=== PATIENT | male | born 1960 | race Caucasian/White ===

== ENCOUNTER 2019-04-20 14:50 | Inpatient (IN) ==
[2019-04-20] MEDS: Carbidopa/Levodopa 25/100 TABLET PO SCH ×3 (18:27→22:52)
[2019-04-20] MEDS: QUEtiapine Fumarate 25 MG TABLET PO SCH ×2 (22:41→22:52)
[2019-04-21] MEDS: Carbidopa/Levodopa 25/100 TABLET PO SCH ×6 (04:00→20:26)
[2019-04-21 05:48] LABS: Basophils % 0.6 %; Eosinophils # 0.1 K/mcL (0.0-0.6); Eosinophils % 1.2 %; Hematocrit 40.3 % (37.5-50.1); Hemoglobin 13.4 g/dL (12.9-16.9); Immature Granulocytes % 0.3 % (0-4); Lymphocytes # 0.8 K/mcL (0.6-4.6); Mean Corpuscular HGB Conc 33.3 g/dL (31.6-35.5); Mean Corpuscular Volume 87.2 fL (83.0-100.0); Mean Platelet Volume 10.1 fL (9.4-12.4); Monocytes # 0.4 K/mcL (0.0-1.3); Monocytes % 6.8 %; Neutrophils # 5.1 K/mcL (1.6-8.9); Platelet Count 200 K/mcL (140-400); Red Blood Count 4.62 M/mcL (4.19-5.50); Red Cell Distribution Width 13.2 % (11.5-14.5); Segmented Neutrophils % 79.1 %; White Blood Count 6.5 K/mcL (4.3-11.1)
[2019-04-21 05:54] LABS: INR 1.2; Prothrombin Time 13.3 Seconds (9.4-12.1)
[2019-04-21 05:56] LABS: Activated Partial Thrombo Time 30.1 Seconds (26.0-36.0)
[2019-04-21 06:05] LABS: BUN/Creatinine Ratio 28 (6-26); Blood Urea Nitrogen 27 mg/dL (8-23); Calcium 8.7 mg/dL (8.6-10.3); Carbon Dioxide 27 mEq/L (23-29); Chloride 109 mEq/L (98-107); Glucose 110 mg/dL (70-105); Osmolality,Calculated 302 (280-300); Sodium 143 mEq/L (136-145); eGFR For African Americans > 60 (> 60); eGFR For Non-African Americans > 60 (> 60)
[2019-04-21] MEDS: Cholecalciferol (D-3) 1,000 UNIT (25MCG) TABLET PO SCH (08:23)
[2019-04-21] MEDS: QUEtiapine Fumarate 25 MG TABLET PO SCH ×2 (08:23→20:26)
[2019-04-21] MEDS: NIFEdipine XL (24 HR) 30 MG TAB.ER.24 PO SCH (11:06)
[2019-04-22] MEDS: Carbidopa/Levodopa 25/100 TABLET PO SCH ×6 (00:43→20:14)
[2019-04-22] MEDS: Cholecalciferol (D-3) 1,000 UNIT (25MCG) TABLET PO SCH (08:13)
[2019-04-22] MEDS: QUEtiapine Fumarate 25 MG TABLET PO SCH ×2 (08:13→20:14)
[2019-04-22] MEDS: NIFEdipine XL (24 HR) 30 MG TAB.ER.24 PO SCH (11:39)
[2019-04-23] MEDS: Carbidopa/Levodopa 25/100 TABLET PO SCH ×7 (00:02→23:55)
[2019-04-23] MEDS: QUEtiapine Fumarate 25 MG TABLET PO SCH ×2 (08:27→19:49)
[2019-04-23] MEDS: Cholecalciferol (D-3) 1,000 UNIT (25MCG) TABLET PO SCH (08:28)
[2019-04-23] MEDS: NIFEdipine XL (24 HR) 30 MG TAB.ER.24 PO SCH (13:10)
[2019-04-23] MEDS ORDERED: Methyl Salicylate/Menthol 28 GM TUBE TP PRN (20:08)
[2019-04-24] MEDS: Trolamine Salicylate/Aloe Vera 85 APPL/85 GM TUBE TP PRN ×2 (01:52→19:56)
[2019-04-24] MEDS: Carbidopa/Levodopa 25/100 TABLET PO SCH ×5 (04:23→19:56)
[2019-04-24] MEDS: QUEtiapine Fumarate 25 MG TABLET PO SCH ×2 (09:27→19:56)
[2019-04-24] MEDS: Cholecalciferol (D-3) 1,000 UNIT (25MCG) TABLET PO SCH (09:27)
[2019-04-24] MEDS: NIFEdipine XL (24 HR) 30 MG TAB.ER.24 PO SCH (11:26)
[2019-04-25] MEDS: Carbidopa/Levodopa 25/100 TABLET PO SCH ×7 (00:26→23:22)
[2019-04-25] MEDS: Cholecalciferol (D-3) 1,000 UNIT (25MCG) TABLET PO SCH (07:48)
[2019-04-25] MEDS: QUEtiapine Fumarate 25 MG TABLET PO SCH ×2 (07:48→19:55)
[2019-04-25] MEDS: NIFEdipine XL (24 HR) 30 MG TAB.ER.24 PO SCH (11:25)
[2019-04-26] MEDS: Carbidopa/Levodopa 25/100 TABLET PO SCH ×5 (04:55→20:30)
[2019-04-26] MEDS: Cholecalciferol (D-3) 1,000 UNIT (25MCG) TABLET PO SCH (08:21)
[2019-04-26] MEDS: QUEtiapine Fumarate 25 MG TABLET PO SCH ×2 (08:21→20:30)
[2019-04-26] MEDS: NIFEdipine XL (24 HR) 30 MG TAB.ER.24 PO SCH (12:07)
[2019-04-27] MEDS: Carbidopa/Levodopa 25/100 TABLET PO SCH ×6 (01:04→20:18)
[2019-04-27] MEDS: QUEtiapine Fumarate 25 MG TABLET PO SCH ×2 (08:07→20:18)
[2019-04-27] MEDS: Cholecalciferol (D-3) 1,000 UNIT (25MCG) TABLET PO SCH (08:07)
[2019-04-27] MEDS: NIFEdipine XL (24 HR) 30 MG TAB.ER.24 PO SCH (11:42)
[2019-04-28] MEDS: Carbidopa/Levodopa 25/100 TABLET PO SCH ×7 (01:12→23:20)
[2019-04-28] MEDS: QUEtiapine Fumarate 25 MG TABLET PO SCH ×2 (08:33→19:48)
[2019-04-28] MEDS: Cholecalciferol (D-3) 1,000 UNIT (25MCG) TABLET PO SCH (08:33)
[2019-04-28] MEDS: NIFEdipine XL (24 HR) 30 MG TAB.ER.24 PO SCH (12:12)
[2019-04-29] MEDS: Carbidopa/Levodopa 25/100 TABLET PO SCH ×6 (04:07→23:31)
[2019-04-29] MEDS: QUEtiapine Fumarate 25 MG TABLET PO SCH ×2 (07:45→20:19)
[2019-04-29] MEDS: Cholecalciferol (D-3) 1,000 UNIT (25MCG) TABLET PO SCH (07:46)
[2019-04-29] MEDS: Aspirin Enteric Coated 81 MG Tablet PO SCH (07:46)
[2019-04-29 08:17] LABS: Hematocrit 40.9 % (37.5-50.1); Hemoglobin 13.9 g/dL (12.9-16.9); Mean Corpuscular Hemoglobin 29.6 pg (28.0-33.3); Mean Corpuscular Volume 87.2 fL (83.0-100.0); Platelet Count 253 K/mcL (140-400); Red Blood Count 4.69 M/mcL (4.19-5.50); Red Cell Distribution Width 12.8 % (11.5-14.5); White Blood Count 6.9 K/mcL (4.3-11.1)
[2019-04-29 08:37] LABS: BUN/Creatinine Ratio 18 (6-26); Blood Urea Nitrogen 16 mg/dL (8-23); Calcium 9.1 mg/dL (8.6-10.3); Carbon Dioxide 30 mEq/L (23-29); Chloride 104 mEq/L (98-107); Glucose 102 mg/dL (70-105); Osmolality,Calculated 293 (280-300); Potassium 3.7 mEq/L (3.5-5.1); Sodium 141 mEq/L (136-145); eGFR For African Americans > 60 (> 60); eGFR For Non-African Americans > 60 (> 60)
[2019-04-29] MEDS: NIFEdipine XL (24 HR) 30 MG TAB.ER.24 PO SCH (12:30)
[2019-04-30] MEDS: Carbidopa/Levodopa 25/100 TABLET PO SCH ×5 (03:49→20:28)
[2019-04-30] MEDS: Aspirin Enteric Coated 81 MG Tablet PO SCH (07:41)
[2019-04-30] MEDS: Cholecalciferol (D-3) 1,000 UNIT (25MCG) TABLET PO SCH (07:42)
[2019-04-30] MEDS: QUEtiapine Fumarate 25 MG TABLET PO SCH ×2 (07:42→20:27)
[2019-04-30] MEDS: NIFEdipine XL (24 HR) 30 MG TAB.ER.24 PO SCH (11:37)
[2019-05-01] MEDS: Carbidopa/Levodopa 25/100 TABLET PO SCH ×6 (00:30→20:03)
[2019-05-01] MEDS: Aspirin Enteric Coated 81 MG Tablet PO SCH (07:58)
[2019-05-01] MEDS: QUEtiapine Fumarate 25 MG TABLET PO SCH ×2 (07:59→20:02)
[2019-05-01] MEDS: Cholecalciferol (D-3) 1,000 UNIT (25MCG) TABLET PO SCH (07:59)
[2019-05-01] MEDS: NIFEdipine XL (24 HR) 30 MG TAB.ER.24 PO SCH (11:18)
[2019-05-02] MEDS: Carbidopa/Levodopa 25/100 TABLET PO SCH ×6 (00:16→19:49)
[2019-05-02] MEDS: QUEtiapine Fumarate 25 MG TABLET PO SCH ×2 (08:13→19:49)
[2019-05-02] MEDS: Aspirin Enteric Coated 81 MG Tablet PO SCH (08:14)
[2019-05-02] MEDS: Cholecalciferol (D-3) 1,000 UNIT (25MCG) TABLET PO SCH (08:14)
[2019-05-02] MEDS: NIFEdipine XL (24 HR) 30 MG TAB.ER.24 PO SCH (11:26)
[2019-05-03] MEDS: Carbidopa/Levodopa 25/100 TABLET PO SCH ×6 (01:04→20:16)
[2019-05-03] MEDS: Aspirin Enteric Coated 81 MG Tablet PO SCH (08:58)
[2019-05-03] MEDS: QUEtiapine Fumarate 25 MG TABLET PO SCH ×2 (08:59→20:16)
[2019-05-03] MEDS: Cholecalciferol (D-3) 1,000 UNIT (25MCG) TABLET PO SCH (08:59)
[2019-05-03] MEDS: Ondansetron ODT 4 MG TAB.RAPDIS SL PRN (12:22)
[2019-05-03] MEDS: NIFEdipine XL (24 HR) 30 MG TAB.ER.24 PO SCH (12:22)
[2019-05-04] MEDS: Carbidopa/Levodopa 25/100 TABLET PO SCH ×7 (01:44→23:54)
[2019-05-04] MEDS: Aspirin Enteric Coated 81 MG Tablet PO SCH (08:01)
[2019-05-04] MEDS: QUEtiapine Fumarate 25 MG TABLET PO SCH ×2 (08:01→20:30)
[2019-05-04] MEDS: Cholecalciferol (D-3) 1,000 UNIT (25MCG) TABLET PO SCH (08:01)
[2019-05-04] MEDS: NIFEdipine XL (24 HR) 30 MG TAB.ER.24 PO SCH (11:29)
[2019-05-05] MEDS: Carbidopa/Levodopa 25/100 TABLET PO SCH ×5 (05:03→20:50)
[2019-05-05] MEDS: QUEtiapine Fumarate 25 MG TABLET PO SCH ×2 (10:02→20:50)
[2019-05-05] MEDS: Cholecalciferol (D-3) 1,000 UNIT (25MCG) TABLET PO SCH (10:02)
[2019-05-05] MEDS: Aspirin Enteric Coated 81 MG Tablet PO SCH (10:02)
[2019-05-05] MEDS: Ondansetron ODT 4 MG TAB.RAPDIS SL PRN (13:07)
[2019-05-05] MEDS: NIFEdipine XL (24 HR) 30 MG TAB.ER.24 PO SCH (13:08)
[2019-05-06] MEDS: Carbidopa/Levodopa 25/100 TABLET PO SCH ×6 (00:25→20:06)
[2019-05-06] MEDS: Aspirin Enteric Coated 81 MG Tablet PO SCH (07:50)
[2019-05-06] MEDS: QUEtiapine Fumarate 25 MG TABLET PO SCH ×2 (07:51→20:06)
[2019-05-06] MEDS: Cholecalciferol (D-3) 1,000 UNIT (25MCG) TABLET PO SCH (07:54)
[2019-05-06] MEDS: NIFEdipine XL (24 HR) 30 MG TAB.ER.24 PO SCH (10:53)
[2019-05-06] MEDS: Ondansetron ODT 4 MG TAB.RAPDIS SL PRN (10:53)
[2019-05-06] MEDS: Trolamine Salicylate/Aloe Vera 85 APPL/85 GM TUBE TP PRN (17:47)
[2019-05-07] MEDS: Carbidopa/Levodopa 25/100 TABLET PO SCH ×6 (00:46→19:52)
[2019-05-07 06:21] LABS: Hematocrit 40.1 % (37.5-50.1); Hemoglobin 13.5 g/dL (12.9-16.9); Mean Corpuscular HGB Conc 33.7 g/dL (31.6-35.5); Mean Corpuscular Volume 86.1 fL (83.0-100.0); Platelet Count 308 K/mcL (140-400); Red Blood Count 4.66 M/mcL (4.19-5.50); Red Cell Distribution Width 12.7 % (11.5-14.5); White Blood Count 5.6 K/mcL (4.3-11.1)
[2019-05-07 06:45] LABS: BUN/Creatinine Ratio 17 (6-26); Blood Urea Nitrogen 17 mg/dL (8-23); Calcium 9.1 mg/dL (8.6-10.3); Carbon Dioxide 29 mEq/L (23-29); Chloride 105 mEq/L (98-107); Glucose 99 mg/dL (70-105); Osmolality,Calculated 294 (280-300); Sodium 141 mEq/L (136-145); eGFR For African Americans > 60 (> 60); eGFR For Non-African Americans > 60 (> 60)
[2019-05-07] MEDS: Cholecalciferol (D-3) 1,000 UNIT (25MCG) TABLET PO SCH (07:49)
[2019-05-07] MEDS: Aspirin Enteric Coated 81 MG Tablet PO SCH (07:49)
[2019-05-07] MEDS: QUEtiapine Fumarate 25 MG TABLET PO SCH ×2 (07:49→19:52)
[2019-05-07] MEDS: Ondansetron ODT 4 MG TAB.RAPDIS SL PRN ×2 (11:16→18:33)
[2019-05-07] MEDS: NIFEdipine XL (24 HR) 30 MG TAB.ER.24 PO SCH (11:16)
[2019-05-08] MEDS: Carbidopa/Levodopa 25/100 TABLET PO SCH ×4 (00:36→11:20)
[2019-05-08 08:27] VITALS: BP 132/81
[2019-05-08] MEDS: QUEtiapine Fumarate 25 MG TABLET PO SCH (08:32)
[2019-05-08] MEDS: Aspirin Enteric Coated 81 MG Tablet PO SCH (08:32)
[2019-05-08] MEDS: Cholecalciferol (D-3) 1,000 UNIT (25MCG) TABLET PO SCH (08:33)
[2019-05-08] MEDS: NIFEdipine XL (24 HR) 30 MG TAB.ER.24 PO SCH (11:20)
== END 2019-05-08 11:40 | disposition home health service (06) | DRG 946 ==
LOC: INPPIK 17:00
PROVIDERS: ADMIT Family Medicine; ATTEND Family Medicine